=== PATIENT | male | born 1960 | race Two or more races ===

== ENCOUNTER 2021-09-19 09:48 | Emergency (ER) | payer MEDICARE, OTHER ==
[~2021-09-19] VITALS: Ht 167.6 cm; Wt 104.3 kg
[~2021-09-19 09:48] MED LIST: ASPI-1169 PO
[2021-09-19 09:59] VITALS: BP 120/82
--- NOTE | 2021-09-19 10:05 | NUR ---
The patient bib family member due to patient fell off stairs yesterday (<6ft) Hurt R leg/bess/foot and rates pain 6/10. Will continue to monitor the patient.
--- NOTE | 2021-09-19 10:25 | NUR ---
x-ray tech at the bedside
== END 2021-09-19 11:46 | disposition home or self-care (01) ==
LOC: ER 09:54
DX: S80.11XA Contusion of right lower leg, initial encounter (principal); S90.31XA Contusion of right foot, initial encounter; I10 Essential (primary) hypertension; E11.9 Type 2 diabetes mellitus without complications; F17.200 Nicotine dependence, unspecified, uncomplicated; Z79.82 Long term (current) use of aspirin; W01.0XXA Fall on same level from slipping, tripping and stumbling without subsequent striking against object, initial encounter; Y93.89 Activity, other specified; Y92.89 Other specified places as the place of occurrence of the external cause; Y99.8 Other external cause status
CPT/HCPCS: 73590-TC; 73630-TC

== ENCOUNTER 2023-03-31 12:56 | Emergency (ER) | payer MEDICARE, OTHER ==
[~2023-03-31] VITALS: Ht 165.1 cm; Wt 96.6 kg
--- NOTE | 2023-03-31 13:52 | NUR ---
LEFT SIDED RIBCAGE PAIN SINCE LAST NIGHT AFTER A GLF. RATES PAIN 5/10. IN ROOM AIR AND DENIES SOB. RESPIRATION REGULAR AND UNLABORED. WILL CONTINUE TO MONITOR THE PATIENT.
--- NOTE | 2023-03-31 14:23 | NUR ---
UA SENT TO LAB
--- NOTE | 2023-03-31 15:00 | NUR ---
NOpain no sob
[2023-03-31] MEDS ORDERED: NAPR-1009 PO (16:00)
[2023-03-31] MEDS ORDERED: INHA1INH6 MC (16:01)
--- NOTE | 2023-03-31 16:20 | NUR ---
Patient discharged to home in stable condition. Written and verbal after care instructions given. Patient verbalizes understanding of instruction.
[2023-03-31 16:26] VITALS: BP 113/78
== END 2023-03-31 16:27 | disposition home or self-care (01) ==
LOC: ER 13:01
DX: S20.212A Contusion of left front wall of thorax, initial encounter (principal); I10 Essential (primary) hypertension; E78.00 Pure hypercholesterolemia, unspecified; E11.9 Type 2 diabetes mellitus without complications; F17.200 Nicotine dependence, unspecified, uncomplicated; Z79.899 Other long term (current) drug therapy; W01.0XXA Fall on same level from slipping, tripping and stumbling without subsequent striking against object, initial encounter; Y93.89 Activity, other specified; Y92.89 Other specified places as the place of occurrence of the external cause; Y99.8 Other external cause status
CPT/HCPCS: 71100-TC

== ENCOUNTER 2024-04-26 21:02 | Emergency (ER) | payer MEDICARE, OTHER ==
[~2024-04-26] VITALS: Ht 175.3 cm; Wt 96.6 kg
[~2024-04-26 21:02] MED LIST changes: +INHA1INH6 MC; +NAPR-1009 PO
[2024-04-26 21:54] VITALS: BP 109/69; TEMP 100.7
[2024-04-26] MEDS ORDERED: BENZ-13 PO (22:20)
[2024-04-26] MEDS ORDERED: GUAI1TBM19 PO (22:20)
[2024-04-26] MEDS ORDERED: AZIT500T4 PO (22:20)
[2024-04-26] MEDS ORDERED: GUAIFENESIN/D-METHORPHAN HB 5 ML UDC ONE (22:25)
[2024-04-26] MEDS: AZITHROMYCIN 250 MG TABLET PO ONE (22:26)
[2024-04-26] MEDS: GUAIFENESIN/D-METHORPHAN HB 5 ML UDC PO ONE (22:26)
[2024-04-26] MEDS ORDERED: AZITHROMYCIN 250 MG TABLET ONE (22:26)
[2024-04-26 22:31] VITALS: O2SAT 97
== END 2024-04-26 22:31 | disposition home or self-care (01) ==
LOC: ER 21:06
DX: J06.9 Acute upper respiratory infection, unspecified (principal); I10 Essential (primary) hypertension; E11.9 Type 2 diabetes mellitus without complications; E78.5 Hyperlipidemia, unspecified; F17.200 Nicotine dependence, unspecified, uncomplicated